=== PATIENT | female | born 1955 | race Caucasian/White ===

== ENCOUNTER 2019-12-08 06:16 | Emergency (ER) | payer OTHER, SELFPAY ==
--- NOTE | ~2019-12-08 | XR_ITS ---
EXAMINATION: XR foot LT min 3V DATE: 12/08/2019 06:55 INDICATION: Left foot pain. TECHNIQUE: 4 views of left foot were obtained. COMPARISON: None. FINDINGS: There is moderate hallux valgus. There is a transverse fracture of diaphysis of first metat arsal. The distal fracture fragment demonstrates one cortical width lateral displacement, impaction, and 8 degrees medial angulation. There is mild osteoarthritis of first metatarsophalangeal joint and some of the interphalangeal joints. IMPRESSION: 1. Transverse fracture of diaphysis of first metatarsal. 2. Moderate hallux valgus. 3. Mild polyarticular osteoarthritis. Reviewed, dictated and finalized at location A. ICAL ASSISTANT
[2019-12-08 06:19] VITALS: BP 127/89; PULSE 72; RESP 18; TEMP 36.9; O2SAT 100
--- NOTE | 2019-12-08 06:27 | ED.GENADULT ---
HPI - General Adult General Chief complaint: Extremity Injury, Lower Stated complaint: foot injury on monday Time Seen by Provider: 12/08/19 06:25 Source: patient and family Mode of arrival: ambulatory Limitations: no limitations History of Present Illness HPI narrative: Patient presented to the emergency department for evaluation of left foot pain. Patient states that she dropped a pallet on her foot 3 days ago while she was working. Palate was approximately 30 pounds. Patient has had increasing pain, bruising of the left foot. Denies open cuts or laceration. No knee pain, no ankle pain. No redness. No numbness. Related Data Home Medications Medication Instructions Recorded Confirmed raloxifene 60 mg tablet 60 mg PO DAILY 08/29/19 Allergies Allergy/AdvReac Type Severity Reaction Status Date / Time codeine Allergy Mild Nausea Verified 12/08/19 06:25 Review of Systems Review of Systems: Narrative: CONSTITUTIONAL: Denies fever, chills, or sweats. CARDIOVASCULAR: Denies chest pain RESPIRATORY: Denies cough or dyspnea. SKIN: Denies rash or itching. MUSCULOSKELETAL: Denies back pain, reports left foot pain NEUROLOGIC: Denies numbness PMFSH Family History Family History Father Cerebrovascular accident Mother Family history of Alzheimer's disease Sibling Family history of malignant neoplasm of brain Social History Social History Smoking status: Never smoker Second hand tobacco smoke exposure: No Alcohol intake: current Substance use: never Substance use type: does not use Exam Narrative: Exam Narrative: GENERAL: Well-appearing, well-nourished, and in no acute distress. HEAD: Normocephalic, atraumatic. EYES: PERRLA and EOMI. ENT: Nares clear, no rhinorrhea or epistaxis. Mucous membranes moist. NECK: Supple. CHEST: No respiratory distress. HEART: Normal peripheral pulses. ABDOMEN: Soft, nontender, nondistended, normal active bowel sounds. EXTREMITIES: Normal range of motion in the left ankle. No pain with flexion or extension, no edema or deformity. Positive edema, positive deformity of the left forefoot, tenderness palpation with ecchymosis present. DP pulses 2+. SKIN: Warm, ecchymosis to left anterior forefoot, edema. Compartment soft. NEURO: No focal deficits. Alert and oriented x3 Course Vital Signs Vital signs: Vital Signs Temperature 36.9 C 12/08/19 06:19 Pulse Rate 72 12/08/19 06:19 Respiratory Rate 18 12/08/19 06:19 Blood Pressure 127/89 12/08/19 06:19 Pulse Oximetry 100 12/08/19 06:19 Temperature 36.9 C 12/08/19 06:19 Pulse Rate 72 12/08/19 06:19 Respiratory Rate 18 12/08/19 06:19 Blood Pressure 127/89 12/08/19 06:19 Pulse Oximetry 100 12/08/19 06:19 Procedures Orthopedic Splinting/Casting Injury #1: Splinting/Casting Date: 12/08/19 Splinting/Casting Time: 07:10 Side: left Upper Extremity Immobilizer: posterior splint Lower Extremity Injury Location: foot Lower Extremity Immobilizer: posterior splint Splint: customized in ED Pre-Procedure Neuro Vascular Exam: normal Post-Procedure Neuro Vascular Exam: normal Other Orthopedic Equipment: crutches Medical Decision Making MDM Narrative Medical decision making narrative: Patient presented with bruising, deformity to the left foot, neurovascularly intact. Patient with a closed first metatarsal fracture. Compartments soft. Patient will be splinted, given orthopedic follow-up. Discharged home with crutches, nonweightbearing status in stable condition. Vital Signs Vital Signs: Vital Signs Temperature 36.9 C 12/08/19 06:19 Pulse Rate 72 12/08/19 06:19 Respiratory Rate 18 12/08/19 06:19 Blood Pressure 127/89 12/08/19 06:19 Pulse Oximetry 100 12/08/19 06:19 Temperature 36.9 C 12/08/19 06:19 Pul
== END 2019-12-08 07:37 | disposition home or self-care (01) ==
PROVIDERS: Emergency Provider Emergency Medicine; PCP Family Medicine
DX: S92.312A Displaced fracture of first metatarsal bone, left foot, initial encounter for closed fracture (principal); M19.072 Primary osteoarthritis, left ankle and foot; M20.12 Hallux valgus (acquired), left foot; W20.8XXA Other cause of strike by thrown, projected or falling object, initial encounter
CPT/HCPCS: 29515; 73630; 99284

== ENCOUNTER 2020-03-06 08:00 | Outpatient (RCR) | payer OTHER, SELFPAY ==
--- NOTE | 2020-02-18 09:21 | PTOPEVAL ---
PHYSICAL THERAPY EVALUATION AND PLAN OF CARE 02-18-2020 The PT evaluation was completed and the plan of treatment is for 2x/week for 3 weeks. Thank you for referring Jennifer Ferrari to [facility]. Please review, sign, date and return this plan of care [facility]. I agree with and certify that the following plan of care is medically necessary. Referring Physician Date Attending Provider: Yoseph Woods MD *PT Outpatient Evaluation Start: 02/18/20 08:35 Document 02/18/20 08:35 CLEMENT (Rec: 02/18/20 09:21 CLEMENT [id number]) Outpatient Past Medical History Past Medical History Source of Past Medical History Patient Neurological History Hx Neurological Disorders No Significant History Cardiovascular History Hx Cardiac Disorders No Significant History Respiratory History Hx Respiratory Disorders No Significant History Gastrointestinal History Hx Gastrointestinal Disorders No Significant History Genitourinary History Hx Kidney Stones Yes: laser blasted Musculoskeletal History Hx Other Musculoskeletal Disorders Yes: osteoporosis- med; previous fx L foot 10 yr ago Hematological History Hx Hematological Disorders No Significant History Endocrine History Hx Endocrine Disorders No Significant History HEENT History Hx Other HEENT Disorders Yes: wear glasses Evaluation Information Problem Diagnosis displaced fracture of first metatarsal bone L foot- non surgical Onset Dec 06, 2019 Additional Evaluation Detail injury occured at work, a pallet fell onto her L foot Subjective Information non surgery, was wearing cast Query Text:As Reported By Patient/ shoe; now regular shoes; Family returned to work about 2 weeks after injury; then on leave due to covid virus; on work restriction of sitting duties; was using walker until last week; 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 Activity of Daily Living Ability Independent Indoor/Home Mobility Independent Functional Cognition (Planning, Shopping Independent , Taking Medications) Cooking Yes Cleaning Yes Laundry Yes Shopping Yes Driving Yes Comments Additional Prior Level of Function limit walking due to pain foot Comments , cautious on stairs; slower
--- NOTE | 2020-03-06 08:28 | PTOPEVAL ---
PHYSICAL THERAPY DISCHARGE 03-06-2020 Mrs. Ferrari has received 6 PT sessions, from February 17 to today, for the diagnosis of L MT fracture. Jennifer has improved with increased ankle strength and activity tolerance. She is independent with her home exercises using theraband for resistance. With the B UE maximum lifting test, floor/waist height, 30# was her limit due to feel it in her back. She reports she is transferring to a different department and will not be required to lift as much as her previous department. She has returned to doing all of her usual home tasks and feels that she will be able to return to full work duties. Thank you for referring Jennifer Ferrari to [facility]. Please review, sign, date and return this plan of care [facility]. I agree with and certify that the following plan of care is medically necessary. Referring Physician Date Attending Provider: Yoseph Woods MD Document 03/06/20 08:01 CLEMENT (Rec: 03/06/20 08:26 CLEMENT [id number]) Assessment Status Discharge Subjective Information Jennifer reports: foot is doing Query Text:As Reported By Patient/ well, ready to be discharged Family from PT; feels like she can do everything now, will continue to work on exercises. Pain Assessment Timing of Pain Assessment Timing of Pain Assessment Assessment Pain Scale Pain Scale Used Numeric (1 - 10) Self Report Pain Assessment Left Foot/Feet Reported Pain Level 0 Pain Description Soreness Lowest Pain Intensity 0 Greatest Pain Intensity 2 Other Pain Aggravating Factors end of day Additional Pain Comments no limits in walking/standing; no swelling in foot/ankle; Pain Score Pain Score 0: Self Report Lower Extremity Muscle Strength Testing General Lower Extremity Strength Gross Lower Extremity Strength L LE: single leg standing 20 seconds; single leg PF with 1 UE hold x 20 reps; B UE lift: max 30# stop with report feel in her back; stand on BOSU- stabilization, B small squat; forward and lateral lunge x 20 each; leg press B 90#/ R only 70# / L only 60# x 20 reps; B ankle press 90# x 20 reps; Gait Assessment Gait Assessment Ambulation Assistive Devices None Ambulation Ability Independent Cues Needed For Ambulation None Additional Ambulation Comments no limp with walking; treadmill: forward at 1.8 mph for 5 min/ side walk to R and L .5 mph x 2 min each and backwards walking .6 mph x 2
== END 2020-03-06 11:31 | disposition home or self-care (01) ==
LOC: ANHPT 08:00
PROVIDERS: PCP Family Medicine; Visit Provider Orthopaedic Surgery
DX: S93.31 Subluxation and dislocation of tarsal joint (principal)
CPT/HCPCS: 97110; 97161

== ENCOUNTER → 2020-09-11 15:48 | Outpatient (CLI) | payer OTHER, SELFPAY ==
--- NOTE | ~2020-09-11 | MM_ITS ---
EXAMINATION: MM screening kamille BI w dharmesh HISTORY: Screening TECHNIQUE: Craniocaudal and mediolateral oblique 3-D tomosynthesis images were obtained and synthetic 2-D images were generated. CAD analysis was submitted and interpreted. COMPARISON: Comparison to multiple prior studies sequentially, with oldest reviewed study dated 09/08. BREAST PARENCHYMAL COMPOSITION: The breasts are extremely dense, which lowers the sensitivity of mamm ography. FINDINGS: There is no evidence of suspicious mass, calcification, or architectural distortion to sugg est malignancy in either breast. There has been no suspicious interval change. IMPRESSION: 1. No mammographic evidence of malignancy. 2. Recommend routine screening mammography in one year. BI-RADS Category 1: Negative Reviewed, dictated and finalized at location A. EFIED PETROLEUM GASFITTER
== END ==
PROVIDERS: PCP Family Medicine; Visit Provider Nurse Practitioner Obstetrics & Gynecology
DX: Z12.31 Encounter for screening mammogram for malignant neoplasm of breast (principal)
CPT/HCPCS: 77063; 77067

== ENCOUNTER 2022-07-05 09:57 | Outpatient (CLI) | payer OTHER, SELFPAY ==
--- NOTE | 2022-07-05 10:39 | ECG_ITS ---
Measurements Intervals [place] Rate: 80 P: -29 IL: 119 QRS: 58 QRSD: 86 T: 32 QT: 374 QTc: 432 Interpretive Statements SINUS RHYTHM WITH SHORT IL INTERVAL BASELINE ARTIFACT- I, II, III, AVR, AVL ,AVF, V1-V6 BORDERLINE ECG NO PREVIOUS ECG AVAILABLE FOR COMPARISON Electronically Signed On 07-05-2022 13:13:43 CDT by Devan Perla D.O.
[2022-07-05 11:25] LABS: Prothrombin Time 12.6 Seconds (11.1-14.7)
[2022-07-05 11:26] LABS: Partial Thromboplastin Time 26.8 SECONDS (22.3-36.8)
[2022-07-05 11:28] LABS: Basophils Absolute Auto 0.1 K/mm3 (0.0-0.1); Basophils Percent Auto 1.2 % (0.2-1.2); Eosinophils Absolute Auto 0.1 K/mm3 (0-0.3); Eosinophils Percent Auto 1.5 % (0-4.4); Hematocrit 44.8 % (37.0-47.0); Hemoglobin 14.2 g/dL (12.0-15.0); Immature Granulocyte Absolute 0.01 K/mm3 (0.00-0.031); Immature Granulocyte Percent A 0.2 % (0-0.5); Lymphocytes Absolute Auto 1.72 K/mm3 (0.9-3.2); Lymphocytes Percent Auto 28.5 % (18.3-44.2); Mean Corpuscular HGB Conc 31.7 g/dl (32-36); Mean Corpuscular Hemoglobin 29.3 pg (26-34); Mean Corpuscular Volume 92.4 fl (80-100); Mean Platelet Volume 9.8 fl (7.4-10.4); Monocytes Absolute Auto 0.6 K/mm3 (0.1-0.6); Monocytes Percent Auto 10.4 % (2.6-8.5); Neutrophils Absolute Auto 3.5 K/mm3 (1.3-6.7); Neutrophils Percent Auto 58.2 % (45.5-73.1); Platelet Count Result 243 k/mm3 (150-375); Red Blood Count 4.85 M/mm3 (4.2-5.4); Red Cell Distribution Width 13.4 % (11.5-14.5)
[2022-07-05 11:34] LABS: Alanine Aminotransferase 23 U/L (6-35); Albumin Level 4.5 g/dL (3.5-5.1); Alkaline Phosphatase 47 U/L (38-126); Anion Gap 8 mmol/L (8-16); Aspartate Amino Transferase 28 U/L (14-36); Bilirubin,Total 0.4 mg/dL (0.2-1.3); Blood Urea Nitrogen 15 mg/dL (7-17); Calcium 9.5 mg/dL (8.4-10.2); Carbon Dioxide 30 mmol/L (22-30); Chloride 101 mmol/L (98-107); Estimated Glomerular Filt Rate > 60; Glucose 99 mg/dL (65-110); Potassium 4.4 mmol/L (3.4-5.0); Sodium 139 mmol/L (137-145)
== END 2022-07-05 09:58 | disposition home or self-care (01) ==
LOC: ANHSURGERY 10:04
PROVIDERS: PCP Family Medicine; Visit Provider Urology
DX: Z01.818 Encounter for other preprocedural examination (principal); N81.3 Complete uterovaginal prolapse; Z51.81 Encounter for therapeutic drug level monitoring; Z79.899 Other long term (current) drug therapy
CPT/HCPCS: 36415; 80053; 85025; 85610; 85730; 86850; 86900; 86901; 87086; 93005

== ENCOUNTER 2022-07-18 00:39 | Day surgery (SDC) | payer MEDICARE, OTHER, SELFPAY ==
--- NOTE | 2022-07-05 10:02 | PC.NURSE ---
PRE-OP INSTRUCTIONS, PLEASE READ CAREFULLY Report to the Outpatient Waiting Room, entrance under the green pavilion located off [facility], at time _1000_ on date _07/18/22_. OR Time: _1200_. Time changes happen often and if your time is changed the preop area will call you the afternoon before. - You and your visitor will be asked to self-screen and do not enter if you have any COVID symptoms. - Only one visitor and NO children visitors are allowed at this time. - The patient visitor is requested to leave or wait in car when not with patient due to restrictions. - A mask is required within the hospital. Patients may have clear liquids (water, carbonated beverages, clear teas, apple juice) until 3 hours prior to surgery (0900 AM) with a maximum of 20 ounces. - No food from midnight until time of surgery Take the following medications with a SIP of water the morning of surgery: _NONE_ Medications to discontinue per ABDULLAHI - VITAMINS AND SUPPLEMENTS 7 DAYS PRIOR TO SURGERY, Date to take last dose 07/10/22_ Please no make-up, nail beninese, hairspray, perfume, deodorant, or body powder the day of surgery. No jewelry (including any body piercings) or valuables the day of surgery, leave them at home. Please take a shower or bath the night before, or the morning of, surgery with an antibacterial soap. Wear comfortable, loose fitting clothing. - Jewelry must be removed prior to entering the operating room. Rings and piercings that are not removed may be cut off. - The hospital will not accept responsibility for valuables. - Please leave all valuables, including medications, at home the day of surgery. If you are going home after surgery, a licensed day haul or farm charter bus driver must drive you home. - NO public transportation without another adult. - We recommend that an adult stay with you for 24 hours following discharge. - We also recommend that you do not drive, make important decision, drink alcoholic beverages, or take any drugs that were not prescribed by your health care provider for at least 24 hours after your discharge time. Follow any additional instructions given to you from your surgeon. If you or anyone in your household have experienced Covid symptoms in the past week, please notify your surgeon or the nurse liaison at the phone number below for possible testing. Instructions given to PT and asked if any additional questions and then verbalized understanding. Patient advised to call surgeon office or pre surgery nurse liaison [phone] if any additional questions.
[2022-07-05 10:24] VITALS: BP 134/70; PULSE 74; RESP 18; TEMP 37.3; O2SAT 98; BMI 17.9
--- NOTE | 2022-07-10 09:07 | P.HP_ITS ---
H&P: HPI History of Present Illness Date/Time: 07/10/22 09:07 Chief Complaint: prolapse Narrative: 66-year-old with pelvic organ prolapse and stress incontinence noted on urodynamics Review of Systems Review of Systems: All systems reviewed & are unremarkable except as noted in HPI and below PMFSH Past Medical History Medical History Normal colonoscopy (~09/2015) Osteoporosis Family History Family History Father Cerebrovascular accident Mother Family history of Alzheimer's disease Sibling Family history of malignant neoplasm of brain Social History Social History Smoking status: Never smoker Second hand tobacco smoke exposure: No Alcohol intake: current Drinks per week: 2 Alcohol use details: Occasional Substance use: never Substance use type: does not use Additional living arrangements comments: Additional occupation/education comments: [employer] Gender identity (if verbalized by the patient): Female Spiritual care concerns: No Meds Home Medications and Allergies Home Medications Medication Instructions Recorded Confirmed Type ascorbic acid (vitamin C) 500 mg 500 mg PO DAILY 12/11/19 07/05/22 History chewable tablet cetirizine 10 mg capsule (Allergy 10 mg PO DAILY 12/11/19 07/05/22 History Relief (cetirizine)) vitamin B12 500 mcg-folic acid 400 1 tablet PO DAILY 12/11/19 07/05/22 History mcg tablet raloxifene 60 mg tablet (Evista) 60 mg PO DAILY #30 tabs 03/18/20 07/05/22 Rx vit C-vit [id number]-[id number] capsule 1 cap PO HS 03/31/21 07/05/22 History lactobacillus combination no.9 4 4,000 mmu cells PO DAILY 04/13/22 07/05/22 History billion cell capsule (Adult 50 Plus Probiotic) Collagen Peptide 10 g QAM 07/05/22 07/05/22 History Elderberry Gummie 50 mg DAILY 07/05/22 07/05/22 History calcium carbonate 600 mg-vitamin 1 tablet PO BID 07/05/22 07/05/22 History D3 5 mcg (200 unit) tablet Allergies Allergy/AdvReac Type Severity Reaction Status Date / Time codeine Allergy Mild Nausea Verified 07/05/22 10:15 Exam Narrative: cystocele a +4. [place] at +3. no acute distress thin normal breathing Assessment and Plan Assessment and plan (1) Uterine prolapse: Code(s): N81.4 - Uterovaginal prolapse, unspecified Status: Acute (2) FIDELIA (stress urinary incontinence, female): Code(s): N39.3 - Stress incontinence (female) (male) Status: Acute Plan robotic sacral colpopexy and urethral sling. She understands the risks of bleeding, infection, damage to surrounding organs, damage to bowel urinary tract, mesh related complications including exposure and extrusion, dyspareunia, recurrence of prolapse, persistent recurrent stress incontinence, voiding dysfunction requiring sling release. She agrees to proceed. We also discussed conservative options including observation, Kegel exercises, pessary. She agrees to proceed
[2022-07-18] VITALS (15 sets, daily range): BP systolic 99–119; BP diastolic 37–88; PULSE 54–89; RESP 11–18; TEMP 36.1–36.9; O2SAT 98–100; BMI 17.7
--- NOTE | 2022-07-18 07:17 | WPDHPUPDATE1 ---
History and Physical Update Update Date/Time: 07/18/22 07:17 History and Physical has been reviewed, including an updated exam of the patient. There are NO changes in the patient's condition. Risks, benefits, and alternatives have been discussed and questions answered. Patient agrees to proceed with procedure.
--- NOTE | 2022-07-18 10:27 | WPDHPUPDATE1 ---
History and Physical Update Update Date/Time: 07/18/22 10:27 History and Physical has been reviewed, including an updated exam of the patient. There are NO changes in the patient's condition. Risks, benefits, and alternatives have been discussed and questions answered. Patient agrees to proceed with procedure.
--- NOTE | 2022-07-18 10:35 | WPDANESEPPF ---
Anes - Initial Pre Proc Eval Procedure: Operation Date: 07/18/22 12:00 Proposed Procedures p Robotic Sacrocolpopexy, Urethral Sling - Hiro Miller MD s Laparoscopic Supracervical Hysterectomy - Karena Good MD Date/Time: 07/18/22 10:35 Surgeon: Hiro Miller MD Pre Op Diagnosis: cystocele, complete uterine proplapse Patient Data Age: 66 Gender: F Height: 1.59 m Weight: 45.1 kg Last Vital Signs Temp 37.3 C 07/05/22 10:24 Pulse 74 07/05/22 10:24 Resp 18 07/05/22 10:24 BP 134/70 07/05/22 10:24 Pulse Ox 98 07/05/22 10:24 O2 Del Method Room Air 07/05/22 10:24 Allergies Allergy/AdvReac Type Severity Reaction Status Date / Time codeine Allergy Mild Nausea Verified 07/18/22 10:35 Home Medications Medication Instructions Recorded Confirmed Type ascorbic acid (vitamin C) 500 mg 500 mg PO DAILY 12/11/19 07/05/22 History chewable tablet cetirizine 10 mg capsule (Allergy 10 mg PO DAILY 12/11/19 07/05/22 History Relief (cetirizine)) vitamin B12 500 mcg-folic acid 400 1 tablet PO DAILY 12/11/19 07/05/22 History mcg tablet raloxifene 60 mg tablet (Evista) 60 mg PO DAILY #30 tabs 03/18/20 07/05/22 Rx vit C-vit [id number]-[id number] capsule 1 cap PO HS 03/31/21 07/05/22 History lactobacillus combination no.9 4 4,000 mmu cells PO DAILY 04/13/22 07/05/22 History billion cell capsule (Adult 50 Plus Probiotic) Collagen Peptide 10 g QAM 07/05/22 07/05/22 History Elderberry Gummie 50 mg DAILY 07/05/22 07/05/22 History calcium carbonate 600 mg-vitamin 1 tablet PO BID 07/05/22 07/05/22 History D3 5 mcg (200 unit) tablet Patient hx anesthesia problems: none Family hx anesthesia problems: none Results Review: All pre-operative results and documents have been reviewed as part of the pre-operative evaluation. PENDING SALE TO [facility] Past Medical History Medical History (Updated 07/10/22 @ 09:08 by Hiro Miller MD) Normal colonoscopy (~09/2015) Osteoporosis Surgical History Surgical History (Updated 07/18/22 @ 10:36 by Russell Larson MD) H/O lithotripsy Family History Family History Father Cerebrovascular accident Mother Family history of Alzheimer's disease Sibling Family history of malignant neoplasm of brain Social History Social History Smoking status: Never smoker Second hand tobacco smoke exposure: No Alcohol intake: current Drinks per week: 2 Alcohol use details: Occasional Substance use: never Substance use type: does not use Living arrangements: with family Additional living arrangements comments: Additional occupation/education comments: [employer] Gender identity (if verbalized by the patient): Female Spiritual care concerns: No Anes - Eval Final PreProcedure Day of Procedure 07/18/22 10:35 Heart: regular rate and rhythm Lungs: clear to auscultation Airway: Mallampati scale class II Neurological: alert and oriented Last oral intake: >/= 8 hours ASA classification: II Emergent: no Anesthetic plan: proceed Anesthesia type and monitoring: general ETT and standard monitoring Results Review: All pre-operative results and documents have been reviewed as part of the pre-operative evaluation. Informed Consent: The patient's anesthetic plan and its attendant risks and benefits were discussed with the patient/family/POA. Questions were solicited and answers provided to the satisfaction of the patient/family/POA.
[2022-07-18] MEDS: ACETAMINOPHEN 500 MG TABLET 1000 MG PO (10:42)
[2022-07-18] MEDS: KETOROLAC 15 MG/ML VIAL (*BKC) IV PUSH (10:54)
[2022-07-18] MEDS: LACTATED RINGERS 1,000 ML 30 ML IV CONT ×3 (10:55→14:50)
[2022-07-18] MEDS: ceFAZolin 2 GM/D5W 50 ML 2 GM/50 ML BAG IVPB (11:03)
[2022-07-18] MEDS: metroNIDAZOLE 500 MG/ISO 100ML 500 MG/100 ML BAG 100 MG IVPB (11:18)
[2022-07-18] MEDS: ceFAZolin SODIUM 1 GM VIAL (11:53)
[2022-07-18] MEDS: BUPIVACAINE/EPINEPHRINE 0.25% 50 ML VIAL 10 ML INFILTRATE (11:54)
--- NOTE | 2022-07-18 12:05 | W.PM.PROC2 ---
Procedure Note - Detailed Date of Procedure 07/18/22 Pre-op Diagnosis cystocele, complete uterine proplapse Post-op Diagnosis Same Procedure Performed laparoscopic supracervical hysterectomy and bilateral salpingo-oophorectomy. Surgeon Kraena Good MD Anesthesia General Indications pelvic organ prolapse Findings small uterus, normal appearing ovaries and normal-appearing tubes. Description of Procedure This patient was taken to the operating room. She was prepped and draped in the dorsal lithotomy position after induction of general anesthesia. a tenaculum was applied to the vaginal mucosa at the cervicovaginal juncture posteriorly. This was done with a speculum and tenaculum. The speculum was placed. The cervix was grasped with a tenaculum. Trocars were placed by Dr. Miller. The location of the ureters was identified at the pelvic brim. The ovaries were grasped and raised. The infundibulopelvic ligaments were cauterized and transected with LigaSure cautery. This was all done in a bilateral fashion. The para ovarian tissue was cauterized and transected with LigaSure cautery bilaterally. Moving around the ovary into the broad ligament the tissue was cauterized transected with LigaSure cautery. The round ligaments were cauterized transected with LigaSure cautery this was all done in a bilateral fashion. In a stepwise fashion along the lateral aspects of the uterus the round ligament and broad ligaments were cauterized transected down to the level of the uterine arteries. The cervix was transected using unipolar cautery. The uterus and bilateral tubes and ovaries were laid off to the side for Dr. Miller to remove later. The remainder of the procedure was performed by Dr. Miller again he finished the surgery. Estimated Blood Loss 10 Drains Yes Packing No Pathology Yes Complications No immediate complications Condition Stable Disposition Floor
--- NOTE | 2022-07-18 14:19 | W.PM.PROC2 ---
Procedure Note - Detailed Date of Procedure 07/18/22 Pre-op Diagnosis cystocele, complete uterine proplapse, stress incontinence Post-op Diagnosis Same Procedure Performed Robotic assisted laparoscopic sacral colpopexy Urethral sling Cystoscopy Surgeon Hiro Miller MD Anesthesia General Indications A woman with uterine prolapse as well as stress incontinence. She desires surgical correction. She is here for the above. She understands risks of bleeding, infection, diskitis, damage to surrounding organs, bowel injury, bowel obstruction, mesh related complications including exposure and extrusion, postoperative voiding dysfunction including incontinence and retention, need for ancillary procedures, dyspareunia, recurrence of prolapse, and other perioperative intraoperative postoperative complications. She agrees to proceed. I also discussed pessary at [facility] exercises/physical therapy Findings See below Description of Procedure She was correctly identified. Informed consent obtained. She from the operating room. She was given general anesthesia. She was given appropriate perioperative antibiotics. She was placed a low lithotomy position. Pressure points were padded. A time-out performed. I marked out the skin 3 fingerbreadths cephalad to the umbilicus. I anesthetized the skin. I incised the skin. I dissected down to the fascia. I grasped the fascia with Phillip clamps. I entered the fascia sharply in a Link type technique. I placed sutures for later fascial closure. I placed a midline trocar. I examined the abdomen. There is no sign of any injury. Under direct vision I placed 2 additional trocars in the right upper quadrant and 2 additional trocars the left upper quadrant. She was placed in steep Trendelenburg. The robot was docked. Her admin dir completed their portion of the procedure. Please see that operative report for details. I then sat at the console. The Sizer in the vagina created plane on the anterior and posterior vaginal wall. I took great care not to injure the vagina, bladder, or rectum. I introduced the mesh into the abdomen. I sewed the anterior leaflet of mesh on the anterior vaginal wall. I sewed the posterior leaflet of mesh on the posterior vaginal wall. This was done with several sutures of 2 0 [place]. I reflected the colon laterally. I opened the posterior peritoneum over the sacral promontory. I carried this into the cul-de-sac. I freed up the edges for later retroperitonealization. I located the anterior longitudinal ligament the sacrum. I cleaned off all fatty tissues. I then tensioned my mesh appropriately. I did a vaginal exam the bedside. I assured prolapse reduction without undue tension. I then sewed the proximal leaflet of mesh onto the anterior longitudinal ligament of the sacrum with several sutures of 2 0 [place]. I then used a 2 0 Monocryl to completely and meticulously retroperitonealized all mesh. I allowed the colon to go back to its normal anatomic location. There is no sign of any impingement. The specimen was then removed. All ports removed. Fascia was tied down. Skin was closed with Monocryl and surgical glue. She was repositioned and prepped for urethral sling. I marked out the inner thigh incisions. I anesthetized the skin and made the incisions. I then anesthetized the anterior vaginal wall at the mid urethra. I made a 1 cm incision. I dissected out laterally taking great care not to injure the refilled vaginal wall. I passed the helical trocars. I did this 1st on the left and then on the right. This was done from the thigh incision towards the vaginal incision. Sling was connected to the trocars and brought out the thigh incision. I tensioned the sling appropriately. I cut and the plastic sheaths. I closed the incision with 2 0 Vicryl. I then performed cystoscopy. There was no tumors or surgical artifact. Ureteral patency was documented by either se
--- NOTE | 2022-07-18 14:52 | SUR.PHASEI ---
1451: Simple mask removed.
[2022-07-18] MEDS: ONDANSETRON INJ 4 MG/2 ML VIAL IV PUSH (15:54)
[2022-07-18] MEDS: fentaNYL CITRATE INJ (*CRX) 100 MCG/2 ML VIAL 25 MCG IV PUSH (16:25)
[2022-07-18] MEDS: HALOPERIDOL LACTATE 5 MG/ML VIAL 1 MG IV PUSH (16:48)
--- NOTE | 2022-07-18 18:31 | SUR.PHASEII ---
Patient in outpatient recovery for approximately 2hrs. Patient attempted multiple times to void with no success. Patient was bladder scanned showing >312ml of urine in bladder. Dr. Miller was notified at 1738 of patient's urine retention. Dr. Miller stated to insert garcia catheter and discharge patient. Garcia was inserted with 350ml of pale yellow urine returning. Patient was discharged with garcia catheter in place. garcia catheter care maintenance along with discharge instructions reviewed with patient, patient's daughter, and . All questions and concerns addressed at time of discharge.
== END 2022-07-18 18:30 | disposition home or self-care (01) ==
PROVIDERS: Obstetrics & Gynecology; PCP Family Medicine; Visit Provider Urology
PROC: (CPT 57425; principal; 2022-07-18 12:00)
PROC: 0UT9FZZ Resection of Uterus, Via Natural or Artificial Opening With Percutaneous Endoscopic Assistance (ICD-10-PCS; CPT 58542; 2022-07-18 12:00)
DX: N81.3 Complete uterovaginal prolapse (principal); D25.9 Leiomyoma of uterus, unspecified; N39.3 Stress incontinence (female) (male); M81.0 Age-related osteoporosis without current pathological fracture
CPT/HCPCS: 58542; 57288; 57425; S2900; 88307; A9270; C1758; C1769; C1771; C1781; C9290; J0330; J0690; J1100; J1165; J1170; J1630; J1885; J2250; J2405; J2704; J2710; J3010; J7030; J7120

== ENCOUNTER → 2022-08-17 10:53 | Outpatient (CLI) | payer MEDICARE, OTHER, SELFPAY ==
--- NOTE | ~2022-08-17 | MM_ITS ---
EXAMINATION: MM screening kamille BI w dharmesh HISTORY: Screening mammogram TECHNIQUE: Craniocaudal and mediolateral oblique 3-D tomosynthesis images were obtained and synthetic 2-D images were generated. CAD analysis was submitted and interpreted. COMPARISON: 09/2020, 07/01/2019, 03/2018 bilateral screening mammogram examinations BREAST PARENCHYMAL COMPOSITION: The breasts are heterogeneously dense, which may obscure small masses . FINDINGS: New circumscribed 3.5 x 4 mm opacity is noted in the posterior lower mid left breast. Diagn ostic left mammogram and left breast ultrasound examination are recommended. Otherwise there is no evidence of suspicious mass, calcification, or architectural distortion to sugg est malignancy in either breast. There has been no other suspicious interval change. IMPRESSION: 1. New 3.5 x 4 mm circumscribed opacity in the posterior lower mid left breast 2. Diagnostic left mammogram and left breast ultrasound examination are recommended. BI-RADS Category 0: Incomplete: Needs additional imaging evaluation. Reviewed, dictated and finalized at location A. [employer] IMPRESSION: 1. New 3.5 x 4 mm circumscribed opacity in the posterior lower mid left breast 2. Diagnostic left mammogram and left breast ultrasound examination are recomme nded. BI-RADS Category 0: Incomplete: Needs additional imaging evaluation.
== END ==
PROVIDERS: PCP Family Medicine; Visit Provider Nurse Practitioner Obstetrics & Gynecology
DX: Z12.31 Encounter for screening mammogram for malignant neoplasm of breast (principal); R92.8 Other abnormal and inconclusive findings on diagnostic imaging of breast
CPT/HCPCS: 77063; 77067

== ENCOUNTER → 2022-09-09 07:41 | Outpatient (CLI) | payer MEDICARE, OTHER, SELFPAY ==
--- NOTE | ~2022-09-09 | MMUS_ITS ---
EXAMINATION: MM diagnostic kamille LT w dharmesh, US breast LT limited HISTORY: Left breast mass on screening mammogram TECHNIQUE: Additional 3-D tomosynthesis images of the left breast were performed and synthetic 2-D im ages were generated. CAD analysis was submitted and interpreted. High resolution limited left breast ultrasound was performed. COMPARISON: 08/17/2022, 09/11/2020, 07/01/2019 FINDINGS: MAMMOGRAPHIC FINDINGS: There is a 5 mm round, circumscribed, low density mass in the posterior third of the slightly outer b reast at the 5:00 location 3.8 cm from the nipple. No suspicious calcification or architectural disto rtion are identified. ULTRASOUND: There is a 4 mm x 2 mm oval, circumscribed, parallel, hypoechoic mass at the 5:00 location 3 cm from the nipple with minimal posterior acoustic enhancement and no definite internal vascularity. IMPRESSION: 1. Probably benign left breast mass. 2. Recommend 6 month follow-up left diagnostic mammogram and ultrasound. BI-RADS category 3, probably benign findings. Reviewed, dictated and finalized at location A. [employer] IMPRESSION: 1. Probably benign left breast mass. 2. Recommend 6 month follow-up left diagnostic mammogram and ultrasound. BI-RADS category 3, probably benign findings.
== END ==
PROVIDERS: PCP Family Medicine; Visit Provider Obstetrics & Gynecology
DX: N63.23 Unspecified lump in the left breast, lower outer quadrant (principal)
CPT/HCPCS: 76642; 77061; 77065; G0279

== ENCOUNTER 2022-09-22 08:00 | Outpatient (NON) | payer MEDICARE, OTHER, SELFPAY | END 2022-09-22 08:01 | disposition home or self-care (01) | LOC: ANHLAB 09-23 11:27 | PROVIDERS: PCP Family Medicine; Visit Provider Nurse Practitioner | DX: C44.319 Basal cell carcinoma of skin of other parts of face (principal) | CPT/HCPCS: 88305 ==

== ENCOUNTER 2022-10-13 14:50 | Outpatient (NON) | payer MEDICARE, OTHER, SELFPAY | END 2022-10-13 14:51 | disposition home or self-care (01) | PROVIDERS: PCP Family Medicine; Visit Provider Nurse Practitioner | DX: D22.5 Melanocytic nevi of trunk (principal) | CPT/HCPCS: 88305 ==

== ENCOUNTER 2022-12-05 13:12 | Outpatient (NON) | payer MEDICARE, OTHER, SELFPAY | END 2022-12-05 13:13 | disposition home or self-care (01) | LOC: ANHLAB 13:12 | PROVIDERS: PCP Family Medicine; Visit Provider Nurse Practitioner | DX: C44.319 Basal cell carcinoma of skin of other parts of face (principal) | CPT/HCPCS: 88305; 88331 ==

== ENCOUNTER 2023-07-15 08:03 | Emergency (ER) | payer MEDICARE, OTHER, SELFPAY ==
--- NOTE | 2023-07-15 08:12 | ED.URI ---
HPI - URI/Sore Throat General Chief Complaint: Upper Respiratory Infection Stated Complaint: SORE THROAT History of Present Illness HPI Narrative: 67-year-old female presented for complaint of sore throat since last night. She states the pain was worse last night. Reports sinus congestion and drainage for a few days. Also reports right ear sounds ?wooshy intermittently for a few weeks. Reports one month ago treatment for right ear infection by pcp, reports improvement in those symptoms. Denies painful swallow, cough, sob, wheezing, n/v/d/f/c. Took zyrtec yesterday for symptoms. Related Data Home Medications Medication Instructions Recorded Confirmed ascorbic acid (vitamin C) 500 mg 500 mg PO DAILY 12/11/19 07/15/23 chewable tablet cetirizine 10 mg capsule (Allergy 10 mg PO DAILY 12/11/19 07/15/23 Relief (cetirizine)) vitamin B12 500 mcg-folic acid 400 1 tablet PO DAILY 12/11/19 07/15/23 mcg tablet lactobacillus combination no.9 4 4,000 mmu cells PO DAILY 04/13/22 07/15/23 billion cell capsule (Adult 50 Plus Probiotic) Collagen Peptide 10 g QAM 07/05/22 07/15/23 calcium carbonate 600 mg-vitamin 1 tablet PO BID 07/05/22 07/15/23 D3 5 mcg (200 unit) tablet lutein 20 mg capsule 20 mg PO DAILY 09/05/22 07/15/23 omega-3 360 tp-ras-qqj-fish oil 1 cap PO DAILY 06/01/23 06/01/23 1,200 mg capsule,delayed release (Fish Oil) Allergies Allergy/AdvReac Type Severity Reaction Status Date / Time codeine Allergy Mild Nausea Verified 07/15/23 08:13 Review of Systems Review of Systems: CONSTITUTIONAL: Denies body aches, fever, chills, or sweats. EYES: Denies visual changes, redness, or discharge. ENT: Reports sore throat denies rhinorrhea, congestion, or otalgia. CARDIOVASCULAR: Denies chest pain, palpitations, or edema. RESPIRATORY: Denies dyspnea. GASTROINTESTINAL: Denies abdominal pain, nausea, vomiting, or diarrhea. SKIN: Denies rash, itching, or wounds. MUSCULOSKELETAL: Denies back pain, joint pain, or myalgia. NEUROLOGIC: Denies headache PMFSH Past Medical History Medical History Normal colonoscopy (~09/2015) Osteoporosis Surgical History Surgical History H/O lithotripsy H/O: hysterectomy Family History Family History Father Cerebrovascular accident Mother Family history of Alzheimer's disease Sibling Family history of malignant neoplasm of brain Social History Social History Smoking status: Never smoker Second hand tobacco smoke exposure: No Alcohol intake: current Drinks per week: 2 Alcohol use details: Occasional Substance use: never Substance use type: does not use Lack of Transportation: No Lack of Food: Never True Current Housing: I Have Housing Concerned About Future Housing: No Difficulty Paying Gas/Electric Bills: No Difficulty Paying for Meds: No Currently Unemployed: No Education: High School Diploma/GED Difficulty w/ Childcare or Family Care: No Living arrangements: with family Additional living arrangements comments: Occupation/Education: retired Additional occupation/education comments: retired late Jun 2022 Gender identity (if verbalized by the patient): Female Spiritual care concerns: No Exam Narrative: GENERAL: well-appearing, no acute distress. EYES: conjunctivae clear ENT: Mucous membranes moist. TMs pearly mendoza with normal light reflex bilaterally; no tragal tenderness. Oropharynx not erythematous without tonsillar swelling or exudate. No drooling, no hoarseness, no trismus, uvula midline. No tripod positioning, hot potato voice, or soft palate swelling. NECK: Supple. No lymphadenopathy CHEST: Clear to auscultation, breath sounds equal. No respiratory distress, speaks in full se
[2023-07-15 08:21] VITALS: BP 123/73; PULSE 84; RESP 16; TEMP 36.2; O2SAT 100
== END 2023-07-15 08:33 | disposition home or self-care (01) ==
PROVIDERS: Emergency Provider Nurse Practitioner Family; PCP Family Medicine
DX: J06.9 Acute upper respiratory infection, unspecified (principal); M81.0 Age-related osteoporosis without current pathological fracture
CPT/HCPCS: 87081; 87880; 99213; G0463

== ENCOUNTER 2023-12-07 09:38 | Outpatient (CLI) | payer MEDICARE, SELFPAY ==
[2023-12-07 10:38] LABS: LDL Cholesterol Direct 82 mg/dL
[2023-12-07 10:44] LABS: Alanine Aminotransferase 16 U/L (6-35); Albumin Level 4.5 g/dL (3.5-5.1); Alkaline Phosphatase 48 U/L (38-126); Anion Gap 4 mmol/L (8-16); Aspartate Amino Transferase 28 U/L (14-36); Bilirubin,Total 0.6 mg/dL (0.2-1.3); Blood Urea Nitrogen 14 mg/dL (7-17); Calcium 9.5 mg/dL (8.4-10.2); Carbon Dioxide 30 mmol/L (22-30); Chloride 103 mmol/L (98-107); Cholesterol 214 mg/dL (0-200); Estimated Glomerular Filt Rate > 60; Glucose 98 mg/dL (65-110); Potassium 3.9 mmol/L (3.4-5.0); Sodium 137 mmol/L (137-145); Triglycerides 59 mg/dL (<150)
[2023-12-07 10:52] LABS: HDL Direct 122 mg/dL
== END 2023-12-07 09:39 | disposition home or self-care (01) ==
PROVIDERS: PCP Family Medicine; Visit Provider Family Medicine
DX: E78.2 Mixed hyperlipidemia (principal)
CPT/HCPCS: 36415; 80053; 80061

== ENCOUNTER 2024-03-04 19:19 | Emergency (ER) | payer MEDICARE, SELFPAY ==
--- NOTE | ~2024-03-04 | XR_ITS ---
AP and lateral views of the right tibia/fibula Clinical History: Wound Findings: No acute fracture or dislocation is seen. Osseous alignment is anatomic. Joint spaces are p reserved without significant erosive or degenerative change. Soft tissues are unremarkable. Impression: Unremarkable right tib-fib radiographs. Reviewed, dictated and finalized at [facility]. Impression: Unremarkable right tib-fib radiographs.
[2024-03-04 19:21] VITALS: BP 138/63; PULSE 98; RESP 16; TEMP 37.2; O2SAT 98
[2024-03-04 20:34] VITALS: BP 127/68; PULSE 74; RESP 16; TEMP 36.4; O2SAT 99
[2024-03-04 22:16] VITALS: BP 126/72; PULSE 77; RESP 16; O2SAT 97
--- NOTE | 2024-03-04 22:17 | ED.WOUNDLAC ---
HPI - Wound/Laceration General Chief Complaint: Wound/Laceration Stated Complaint: possible infection to laceration Time Seen by Provider: 03/04/24 20:15 Source: patient Limitations: no limitations History of Present Illness HPI narrative: Patient is a 68-year-old female presents to the emergency department complaining of a wound to her right leg. Patient states 1 week ago she went to the [facility] lo[facility] for a excision of a cancer skin lesion and both of the peripheral aspects of the wound were close but in the middle there was not enough room for up to close a completely. Patient notes that the pain was getting better and seems to be worsening over the past day or 2 and she is now noticing some redness developing over the past day or 2 in addition to some malodorous discharge coming from the wound today. Patient denies fevers, recent injuries, allergies to medications. Patient states she has follow-up coming up in early March for reassessment. Patient has been providing basic wound care with Vaseline follow-up by gauze and changing bandages regularly. Patient admits to taking Tylenol occasionally for pain. Related Data Home Medications Medication Instructions Recorded Confirmed ascorbic acid (vitamin C) 500 mg 500 mg PO DAILY 12/11/19 01/25/24 chewable tablet cetirizine 10 mg capsule (Allergy 10 mg PO DAILY 12/11/19 01/25/24 Relief (cetirizine)) vitamin B12 500 mcg-folic acid 400 1 tablet PO DAILY 12/11/19 01/25/24 mcg tablet lactobacillus combination no.9 4 4,000 mmu cells PO DAILY 04/13/22 01/25/24 billion cell capsule (Adult 50 Plus Probiotic) Collagen Peptide 10 g QAM 07/05/22 01/25/24 calcium carbonate 600 mg-vitamin 1 tablet PO BID 07/05/22 01/25/24 D3 5 mcg (200 unit) tablet lutein 20 mg capsule 20 mg PO DAILY 09/05/22 01/25/24 Allergies Allergy/AdvReac Type Severity Reaction Status Date / Time codeine Allergy Mild Nausea Verified 01/25/24 11:47 Review of Systems Review of Systems: A 10 system review of systems was completed on the patient and is negative except for what is stated in the HPI. Nursing and ancillary documentation was reviewed. [facility] Past Medical History Medical History Normal colonoscopy (~09/2015) Osteoporosis Surgical History Surgical History H/O lithotripsy H/O: hysterectomy Family History Family History Father Cerebrovascular accident Mother Family history of Alzheimer's disease Sibling Family history of malignant neoplasm of brain Social History Social History Smoking status: Never smoker Second hand tobacco smoke exposure: No Alcohol intake: current Drinks per week: 2 Alcohol use details: Occasional Substance use: never Substance use type: does not use Lack of Transportation: No Lack of Food: Never True Current Housing: I Have Housing Concerned About Future Housing: No Difficulty Paying Gas/Electric Bills: No Difficulty Paying for Meds: No Currently Unemployed: No Education: High School Diploma/GED Difficulty w/ Childcare or Family Care: No Living arrangements: with family Additional living arrangements comments: Occupation/Education: retired Additional occupation/education comments: retired late Jun 2022 Gender identity (if verbalized by the patient): Female Spiritual care concerns: No Comments At time of signature, I have reviewed and agree with nursing past medical, surgical, social and family history unless otherwise noted. Please see the nursing chart for further information. There is no relevant family history pertinent to the presenting complaint. Exam Narrative: CONST: No acute distress. Well nourished. HENMT: Head is normocephalic an
[2024-03-04] MEDS: ACETAMINOPHEN 500 MG TABLET 1000 MG PO (22:28)
[2024-03-04] MEDS: SULFAMETHOXAZOLE/TRIMETHOPRIM 800/160 MG DS TABLET 1 TAB PO (22:28)
--- NOTE | 2024-03-04 22:31 | PC.NURSE ---
Patient states that she would rather not take the ibuprofen and will take the Tylenol.
== END 2024-03-04 23:08 | disposition home or self-care (01) ==
PROVIDERS: Emergency Provider Student in an Organized Health Care Education/Training Program; PCP Family Medicine
DX: T81.49XA Infection following a procedure, other surgical site, initial encounter (principal); L03.115 Cellulitis of right lower limb; C44.702 Unspecified malignant neoplasm of skin of right lower limb, including hip; M81.0 Age-related osteoporosis without current pathological fracture; Z90.710 Acquired absence of both cervix and uterus; Y83.8 Other surgical procedures as the cause of abnormal reaction of the patient, or of later complication, without mention of misadventure at the time of the procedure
CPT/HCPCS: 73590; 99283; A9270

== ENCOUNTER 2025-01-29 11:03 | Outpatient (CLI) | payer MEDICARE, SELFPAY ==
--- NOTE | ~2025-01-29 | MM_ITS ---
EXAMINATION: MM screening kamille BI w dharmesh HISTORY: Screening TECHNIQUE: Craniocaudal and mediolateral oblique 3-D tomosynthesis images were obtained and synthetic 2-D images were generated. CAD analysis was submitted and interpreted. COMPARISON: Comparison to multiple prior studies sequentially, with oldest reviewed study dated 06/2017. BREAST PARENCHYMAL COMPOSITION: Dense: The breasts are heterogeneously dense, which may obscure small masses FINDINGS: There is no evidence of suspicious mass, calcification, or architectural distortion to sugg est malignancy in either breast. There has been no suspicious interval change. IMPRESSION: 1. No mammographic evidence of malignancy. 2. Recommend routine screening mammography in one year. BI-RADS Category 1: Negative Reviewed, dictated and finalized at location A.
== END 2025-01-29 11:04 | disposition home or self-care (01) ==
LOC: MICIMG 11:04
PROVIDERS: PCP Family Medicine; Visit Provider Nurse Practitioner
DX: Z12.31 Encounter for screening mammogram for malignant neoplasm of breast (principal)
CPT/HCPCS: 77063; 77067

== ENCOUNTER 2025-06-12 08:18 | Emergency (ER) | payer MEDICARE, SELFPAY ==
[2025-06-12 08:38] VITALS: BP 103/47; PULSE 78; RESP 20; TEMP 36.2; O2SAT 100
--- NOTE | 2025-06-12 08:42 | ED.SKABFB ---
HPI - Skin/Abscess/Foreign Bdy General Chief complaint: Skin/Abscess/Foreign Body Stated complaint: Scratch near mouth Time Seen by Provider: 06/12/25 08:28 Source: patient Mode of arrival: ambulatory Limitations: no limitations History of Present Illness HPI narrative: 69-year-old female presented for complaint of sore to the left corner of the mouth. First noticed 2 days after she was scratched in the mouth last week by a 3-year-old. Denies drainage, swelling. She denies any other skin concerns. She has applied Aquaphor to the site. Related Data Home Medications ?Medication ?Instructions ?Recorded ?Confirmed ?Last Taken ?Type ascorbic acid (vitamin C) 500 mg 500 mg PO DAILY 12/11/19 03/19/25 07/11/22 History chewable tablet cetirizine 10 mg capsule (Allergy 10 mg PO DAILY 12/11/19 03/19/25 Unknown History Relief (cetirizine)) vitamin B12 500 mcg-folic acid 400 1 tablet PO DAILY 12/11/19 03/19/25 07/11/22 History mcg tablet lactobacillus combination no.9 4 4,000 mmu cells PO DAILY 04/13/22 03/19/25 07/11/22 History billion cell capsule (Adult 50 Plus Probiotic) Collagen Peptide 10 g QAM 07/05/22 03/19/25 07/11/22 History calcium 600 mg (as 1 tablet PO BID 07/05/22 03/19/25 07/11/22 History carbonate)-vitamin D3 5 mcg (200 unit) tablet raloxifene 60 mg tablet 60 mg PO DAILY 02/06/25 03/19/25 Unknown History Allergies Allergy/AdvReac Type Severity Reaction Status Date / Time codeine Allergy Mild Nausea Verified 06/12/25 08:42 Review of Systems Review of Systems: CONSTITUTIONAL: Denies body aches, fever, chills, or sweats. EYES: Denies visual changes, redness, or discharge. ENT: reports left corner of mouth with redness Denies rhinorrhea, congestion CARDIOVASCULAR: Denies chest pain, palpitations, or edema. RESPIRATORY: Denies cough or dyspnea. GASTROINTESTINAL: Denies abdominal pain, nausea, vomiting, or diarrhea. SKIN: denies rash MUSCULOSKELETAL: Denies back pain, joint pain, or myalgia. NEUROLOGIC: Denies headache PMFSH Past Medical History Medical History Normal colonoscopy (~09/2015) Osteoporosis Surgical History Surgical History H/O: hysterectomy H/O lithotripsy Family History Family History Father Cerebrovascular accident Mother Family history of Alzheimer's disease Sibling Family history of malignant neoplasm of brain Social History Social History Smoking status: Never smoker Second hand tobacco smoke exposure: No Alcohol intake: current Drinks per week: 2 Alcohol use details: Occasional Substance use: never Substance use type: does not use Lack of Transportation: No Lack of Food: Never True Current Housing: I Have Housing Concerned About Future Housing: No Difficulty Paying Gas/Electric Bills: No Difficulty Paying for Meds: No Currently Unemployed: No Education: High School Diploma/GED Difficulty w/ Childcare or Family Care: No Living arrangements: with family Additional living arrangements comments: Occupation/Education: retired Additional occupation/education comments: retired late Jun 2022 Gender identity (if verbalized by the patient): Female Spiritual care concerns: No Comments At time of signature, I have reviewed and agree with nursing past medical, surgical, social and family history unless otherwise noted. Please see nursing chart for further information. There is no relevant family history pertinent to the presenting complaint Exam Narrative: GENERAL: Well-appearing HEAD: Normocephalic, atraumatic. EYES: conjunctivae clear, and EOMI. ENT: Mucous membranes moist. Left corner of mouth with <0.5cm area of erythematous papule c/w cheilitis, no drainage Oropharynx without edema, erythema or lesions. NECK: Supple. No lymphadenopathy CHEST: Clear to auscultation. HEART: Regular rate and rhythm. SKIN: Warm, dry. NEURO: Alert and oriented x3. Course Course Emergency Course: Patient is aware of diagnosis, understands and agrees to treatment plan. Anticipatory guidance given. Patient agrees to follow-up as directed and is aware of reasons to seek care at the emergency department. Portions of this record may have been created with voice recognition software Level of Care: Express Care Visit Vital Signs Vital signs: Vital Signs Temperature 97.2 F L 06/12/25 08:38 Pulse Rate 78 06/12/25 08:38 Respiratory Rate 20 06/12/25 08:38 Blood Pressure 103/47 L 06/12/25 08:38 Pulse Oximetry 100 06/12/25 08:38 Oxygen Delivery Room Air 06/12/25 08:38 Temperature 97.2 F L 06/12/25 08:38 Pulse Rate 78 06/12/25 08:38 Respiratory Rate 20 06/12/25 08:38 Blood Pressure 103/47 L 06/12/25 08:38 Pulse Oximetry 100 06/12/25 08:38 Oxygen Delivery Room Air 06/12/25 08:38 Reviewed MDM - Skin/Abscess/Foreign Bdy MDM Narrative Medical decision making narrative: Discussed physical exam findings Consistent with colitis. Advised supportive measures and signs/symptoms to go to the ER. Pt is appropriate for outpt treatment and f/u. Differential Diagnosis Differential diagnosis: Likely abscess of skin or subcutaneous tissue, viral exanthem, dermatophytosis, herpes zoster, cellulitis, eczema, impetigo, contact dermatitis and other (chelitis) Discharge Plan Discharge Clinical Impression: Cheilitis Patient Disposition: Home Condition: Stable Instructions: Antibiotic Form, Impetigo (ED) Additional Instructions: Keep the skin dry You can use barrier product like vaseline to keep saliva from the site Take antibiotic as directed Follow up with your primary care provider as needed in 1 week Go to the ER for worsening symptoms or concerns Patient Language: Kazakh Prescriptions: New cephalexin 500 mg capsule 500 mg PO Q12H 5 Days Qty: 10 0RF No Action Adult 50 Plus Probiotic 4 billion cell capsule 4,000 mmu cells PO DAILY Patient Comments: @ 1200 Rx Instructions: administer with a meal ascorbic acid (vitamin C) 500 mg tablet,chewable 500 mg PO DAILY Patient Comments: QAM vitamin [id number] acid 500-400 mcg tablet 1 tablet PO DAILY Rx Instructions: administer with a meal Allergy Relief (cetirizine) 10 mg capsule 10 mg PO DAILY Patient Comments: QAM raloxifene 60 mg tablet 60 mg PO DAILY calcium carbonate-vitamin D3 600 mg-5 mcg (200 unit) Tablet 1 tablet PO BID Collagen Peptide 10 g QAM ferrous sulfate 325 mg (65 mg iron) tablet 325 mg PO DAILY Qty: 30 2RF rosuvastatin 5 mg tablet 5 mg PO DAILY Qty: 30 5RF Follow-up/Referrals: Yuni Carlson MD [Primary Care Provider, [facility]] Time of Disposition: 09:11
== END 2025-06-12 09:28 | disposition home or self-care (01) ==
PROVIDERS: Emergency Provider Nurse Practitioner Family; PCP Family Medicine
DX: K13.0 Diseases of lips (principal); M81.0 Age-related osteoporosis without current pathological fracture
CPT/HCPCS: 99213; G0463